=== PATIENT | female | born 1960 | race Caucasian/White ===

== ENCOUNTER → 2017-06-07 | Outpatient (CLI) | payer BC ==
[~2017-06-07] MED LIST: CALCIUM 600 PLU1 TAB PO; FISH OIL 1000MG1 CAP PO; GINKGO60 MG PO; MULTI VITAMINS1 TAB PO; VITAMIN B-1000 MCG/T PO; VITAMINC1000TA PO
== END ==
LOC: MC.RAD 11:15
DX: Z12.31 Encounter for screening mammogram for malignant neoplasm of breast (principal)

== ENCOUNTER → 2018-08-05 | Outpatient (CLI) | payer BC | LOC: MC.RAD 13:07 | DX: Z12.31 Encounter for screening mammogram for malignant neoplasm of breast (principal); R92.0 Mammographic microcalcification found on diagnostic imaging of breast ==

== ENCOUNTER → 2018-10-31 | Outpatient (CLI) | payer BC | LOC: MC.RAD 09:24 | DX: R92.0 Mammographic microcalcification found on diagnostic imaging of breast (principal) ==

== ENCOUNTER → 2018-11-06 | Outpatient (CLI) | payer BC | LOC: MC.RAD 09:55 | DX: R92.0 Mammographic microcalcification found on diagnostic imaging of breast (principal) ==

== ENCOUNTER 2018-12-03 09:26 | Day surgery (SDC) | payer BC ==
[~2018-12-03] VITALS: Ht 160 cm; Wt 76.9 kg
[2018-12-03] MEDS ORDERED: HCTZ 25MG TAB25 MG PO (10:55)
[2018-12-03 11:05] VITALS: BP 155/70; PULSE 66; TEMP 98.6
--- NOTE | 2018-12-03 11:10 | NUR ---
TO RM 1 ACCOMPANIED WITH FROM RADIOLOGY CALL LIGHT IN REACH
[2018-12-03] MEDS ORDERED: NORCO 325 MG-51 TAB PO (12:40)
[2018-12-03 13:25] VITALS: BP 142/67; PULSE 60; TEMP 97.8
--- NOTE | 2018-12-03 13:25 | NUR ---
Patient arrives back to SDC alert, denies pain or nausea. Patient monitor applied, vital stable. Patient given water and muffin. Patient's spouse at bedside.
--- NOTE | 2018-12-03 13:30 | NUR ---
Patient's right breast dressing is clean/dry/intact, patient reports right breast is numb/no complaints of pain.
[2018-12-03 13:40] VITALS: BP 131/67; PULSE 60
--- NOTE | 2018-12-03 13:50 | NUR ---
Patient tolerates water and muffin without any nausea. Denies pain, vitals stable.
[2018-12-03 13:55] VITALS: BP 122/63; PULSE 58
--- NOTE | 2018-12-03 14:05 | NUR ---
Patient up to restroom at this time and is able to urinate without any difficulties.
--- NOTE | 2018-12-03 14:20 | NUR ---
Dismissal instructions gone over with patient and patient's spouse. Both verbalize understanding and all questions answered.
--- NOTE | 2018-12-03 14:30 | NUR ---
Patient discharged to visitor enterance via wheelchair to private vehicle that patient's spouse is driving. Patient and spouse leave thanking staff for services.
== END 2018-12-03 14:30 | disposition home or self-care (01) ==
LOC: SDCO 09:26 → COL.RAD 10:30 → SDCO 10:30
DX: D05.11 Intraductal carcinoma in situ of right breast (principal); K42.9 Umbilical hernia without obstruction or gangrene; I10 Essential (primary) hypertension; Z80.0 Family history of malignant neoplasm of digestive organs; Z80.42 Family history of malignant neoplasm of prostate; Z87.891 Personal history of nicotine dependence; Z88.5 Allergy status to narcotic agent
CPT/HCPCS: J0690; J1100; J1885; J2250; J2405; J2704; J2795; J3010; J7120

== ENCOUNTER 2018-12-12 06:58 | Day surgery (SDC) | payer BC ==
[~2018-12-12] VITALS: Ht 160 cm; Wt 77.5 kg
[~2018-12-12 06:58] MED LIST changes: +HCTZ 25MG TAB25 MG PO; +NORCO 325 MG-51 TAB PO
[2018-12-12 07:18] VITALS: BP 142/85; PULSE 62; TEMP 98
--- NOTE | 2018-12-12 09:27 | NUR ---
Initial visit; Patient and her thanked Security Project Manager for offering spiritual care. Security Project Manager and her listened and prayed with Cris for a successful procedure and rapid and thorough healing.
[2018-12-12 10:04] VITALS: BP 121/58; PULSE 66; TEMP 97
--- NOTE | 2018-12-12 10:04 | NUR ---
Patient arrives to post-op bay 1 via cart, accompanied by YACHT CAPTAIN and TITLE ONE TEACHER. Bedside report received. Patient is drowsy, but easily aroused to voice. Her is at the bedside. Monitoring applied for post-op vitals - VSS and WNL on room air. Her operative site is covered with a clean, dry, intact dressing. Offered and receives water and a muffin to eat. Call light in reach.
[2018-12-12 10:15] VITALS: BP 112/63; PULSE 56
--- NOTE | 2018-12-12 10:15 | NUR ---
Dressing clean, dry, intact. Denies any needs at this time. Denies any pain, nausea. Tolerating PO well.
[2018-12-12 10:30] VITALS: BP 130/66; PULSE 59
--- NOTE | 2018-12-12 10:30 | NUR ---
Continues to eat muffin and sip on water. Denies pain or nausea. Dressing dry and intact over the right breast area. Spouse in room and IV fluids infusing.
[2018-12-12 10:45] VITALS: BP 118/61; PULSE 60
--- NOTE | 2018-12-12 10:45 | NUR ---
Continues to sip water and eat muffin.
--- NOTE | 2018-12-12 10:55 | NUR ---
IV discontinued and site is free of redness or swelling. Sharan covering the site and instructed to remove dressing when she arrives home.
--- NOTE | 2018-12-12 11:10 | NUR ---
Given dismissal instructions and voices understanding of these. Provided office number for questions and concerns.
--- NOTE | 2018-12-12 11:14 | NUR ---
Patient dismissed to home driven by spouse and taken to the front door per wheelchair and assisted into vehicle by Lauren DUMONT.
== END 2018-12-12 11:14 | disposition home or self-care (01) ==
LOC: SDCO 06:58
DX: D05.11 Intraductal carcinoma in situ of right breast (principal); I10 Essential (primary) hypertension; Z85.3 Personal history of malignant neoplasm of breast; Z90.11 Acquired absence of right breast and nipple; Z88.5 Allergy status to narcotic agent
CPT/HCPCS: J0690; J2250; J2405; J2704; J3010; J7120

== ENCOUNTER → 2020-11-17 | Outpatient (CLI) | payer BC | LOC: MC.RAD 10-28 10:45 | DX: Z12.31 Encounter for screening mammogram for malignant neoplasm of breast (principal) ==

== ENCOUNTER → 2021-11-21 | Outpatient (CLI) | payer BC | LOC: MC.RAD 10:51 | DX: Z12.31 Encounter for screening mammogram for malignant neoplasm of breast (principal) ==